=== PATIENT | male | born 1990 | race African-American/Black ===

== ENCOUNTER 2022-04-27 09:23 | Emergency (ER) | payer OTHER, SELFPAY ==
[2022-04-27] MEDS ORDERED: Morphine 4 MG/ML VIAL ONE ×2 (10:09→11:36)
[2022-04-27] MEDS ORDERED: Bicillin LA 1.2 MILLION UNITS/2 ML SYRINGE ONE (11:37)
== END 2022-04-27 12:45 | disposition home or self-care (01) ==
LOC: CSHERS 09:23
DX: M54.50 Low back pain, unspecified (principal); J02.0 Streptococcal pharyngitis
CPT/HCPCS: 71045; 96372; J0561; J2270